=== PATIENT | male | born 2000 | race Asian ===

== ENCOUNTER 2024-04-12 10:23 | Emergency (ER) | payer OTHER, SELFPAY ==
--- NOTE | ~2024-04-12 | XR_ITS ---
XR ribs BI 3V w CXR 2V Ordering provider: Ebony Schultz APRN History: . fell down 25 stairs 2 days ago, pain upper ant Rt ribs . Comparison: None. FINDINGS: BONES: No acute rib fracture. MEDIASTINUM: The cardiac silhouette is not enlarged. LUNGS: No effusions or infiltrates. No pneumothorax. SOFT TISSUES: Normal. IMPRESSION: No acute osseous abnormality of the bilateral ribs. (Note: subtle/nondisplaced rib fractures can be o ccult on plain films and if there is continued clinical suspicion for rib fracture, recommend follow up CT chest.) Reviewed, dictated and finalized at location A. SIFICATION CONTROL CLERK IMPRESSION: No acute osseous abnormality of the bilateral ribs. (Note: subtle/nondisplaced rib fractures can be occult on plain films and if there is continued clinical s uspicion for rib fracture, recommend follow up CT chest.)
--- NOTE | ~2024-04-12 | XR_ITS ---
XR_CERV2-3V_CR Ordering provider: Ebony Schultz APRN History: . fall 25 stairs . Comparison: None. FINDINGS: VERTEBRAL BODIES: Normal height and alignment. No visible fracture or subluxation. The dens is intact . DISK SPACES: Well maintained. PARASPINOUS SOFT TISSUES: No prevertebral soft tissue swelling. IMPRESSION: No acute osseous abnormality cervical spine. Reviewed, dictated and finalized at location A. ANICAL TECHNICAL SERVICE SPECIALIST
[2024-04-12 10:43] VITALS: BP 125/80; PULSE 69; RESP 16; TEMP 36.8; O2SAT 100
--- NOTE | 2024-04-12 10:44 | ED.BACK ---
HPI - Back Pain/Injury General Chief Complaint: Back Pain/Injury Stated Complaint: R shoulder/neck & lower back pain from injury Time Seen by Provider: 04/12/24 10:44 Source: patient Mode of arrival: ambulatory Limitations: no limitations History of Present Illness HPI Narrative: 24 y/o male presented for c/o pain to multiple sites after falling down 25 stairs 2 days ago. Endorses pain to the right side of the neck, right chest with bruising, tailbone, and right lower anterior leg which he describes as numb. Has been applying cream for pain. Not taking anything by mouth for pain. Rates pain 8/10. Worse when sleeping. Denies headache, vision changes, sob, wheezing, dizziness. Denies LOC at time of the fall. Related Data Home Medications Medication Instructions Recorded Confirmed No Home Medications 04/12/24 04/12/24 Allergies Allergy/AdvReac Type Severity Reaction Status Date / Time No Known Allergies Allergy Verified 04/12/24 10:54 Review of Systems Review of Systems: CONSTITUTIONAL: Denies body aches, fever, chills EYES: Denies visual changes CARDIOVASCULAR: Denies chest pain, palpitations, or edema. RESPIRATORY: Denies cough or dyspnea. GASTROINTESTINAL: Denies abdominal pain, nausea, vomiting, or diarrhea. SKIN: Denies rash, itching, or wounds. MUSCULOSKELETAL: per HPI NEUROLOGIC: Denies headache, numbness, tingling, or weakness. All systems reviewed & are unremarkable except as noted in HPI and below PMFSH Comments At time of signature, I have reviewed and agree with nursing past medical, surgical, social and family history unless otherwise noted. Please see nursing chart for further information. There is no relevant family history pertinent to the presenting complaint Exam Narrative: GENERAL: Well-appearing HEAD: Normocephalic, atraumatic. EYES: conjunctivae clear NECK: full ROM but reports pain to right side of neck when turning head to right. Tender with palpation to C-6-7 and paraspinal area. CHEST: Speaks in full sentences. No respiratory distress. LCTAB. Right anterior chest with hematoma, firm with swelling; ecchymosis noted around areola. HEART: Regular rate and rhythm. Normal and equal peripheral pulses. MUSC: BLEs with normal strength and sensation, normal range of motion. Mild hematoma to right lower anterior leg, sensation intact. Nontender coccyx. No open wounds, or obvious deformity; alignment normal, pulse palpable and equal bilaterally, skin warm, dry, pink. Capillary refill less than 3 seconds. Gait steady. SKIN: Warm, dry NEURO: Alert and oriented x3. Course Course Emergency Course: Patient is aware of diagnosis, understands and agrees to treatment plan. Anticipatory guidance given. Patient agrees to follow-up as directed and is aware of reasons to seek care at the emergency department. Portions of this record may have been created with voice recognition software Level of Care: Express Care Visit Vital Signs Vital signs: Vital Signs Temperature 98.2 F 04/12/24 10:43 Pulse Rate 69 04/12/24 10:43 Respiratory Rate 16 04/12/24 10:43 Blood Pressure 125/80 04/12/24 10:43 Pulse Oximetry 100 04/12/24 10:43 Oxygen Delivery Room Air 04/12/24 10:43 Temperature 98.2 F 04/12/24 10:43 Pulse Rate 69 04/12/24 10:43 Respiratory Rate 16 04/12/24 10:43 Blood Pressure 125/80 04/12/24 10:43 Pulse Oximetry 100 04/12/24 10:43 Oxygen Delivery Room Air 04/12/24 10:43 Reviewed Transfer Transfered to: [facility] Transportation: Other (Private vehicle) Transfer rationale: Pt is agreeable to transfer. Requests transfer to [facility] via private vehicle. Risks of transportation reviewed with pt including injury, worsening of condition and . v/u. Friend will be driving pt; Report called to hospital, spoke with Dr Ashby, accepting physician. Pt is in stable condition at time of transfer. Advised to remain NPO and go directly to the hospital. MDM - Back Pain/Injury MDM Narrative Medical decision making narrative: Advised ER transfer as pt reports a fall down 25 stairs, resulting in pain to multiple sites. Pt requests Xrays at this time. Xrays reviewed with pt. Pt is agreeable to ER transfer. Differential Diagnosis Differential diagnosis: Likely lumbar radiculopathy, sciatica, strain of lumbar region, renal colic, pyelonephritis, discitis and other (MVC, cervical strain, cervical radiculopathy, cervical spine fracture/dislocation/herniation Musculoskeletal injury, torticollis, cervical spondylosis, cervical stenosis, epidural abscess, osteomyelitis, disc herniation) Imaging Data Radiologist's impression: Patient: Brody Harris : 2000 MR#: [id number] Age: 24 Acct:[id number] Loc: [facility] ADM Date: 04/12/24Attending Dr: Ordering Physician: Ebony Schultz APRN Date of Service: 04/12/24 Procedure(s): XR cervical spine 2-3V Accession Number(s): [id number] cc: Ebony Schultz APRN; HEAD WAITER/WAITRESS PHYSICIAN~ XR_CERV2-3V_CR Ordering provider: Ebony Schultz APRN History: . fall 25 stairs . Comparison: None. FINDINGS: VERTEBRAL BODIES: Normal height and alignment. No visible fracture or subluxation. The dens is intact. DISK SPACES: Well maintained. PARASPINOUS SOFT TISSUES: No prevertebral soft tissue swelling. IMPRESSION: No acute osseous abnormality cervical spine. Patient: Brody Harris : 2000 MR#: [id number] Age: 24 Acct:[id number] Loc: [facility] ADM Date: 04/12/24Attending Dr: Ordering Physician: Ebony Schultz APRN Date of Service: 04/12/24 Procedure(s): XR ribs BI w PA/LAT CXR Accession Number(s): [id number] cc: Ebony Schultz APRN; HEAD WAITER/WAITRESS PHYSICIAN~ XR ribs BI 3V w CXR 2V Ordering provider: Ebony Schultz APRN History: . fell down 25 stairs 2 days ago, pain upper ant Rt ribs . Comparison: None. FINDINGS: BONES: No acute rib fracture. MEDIASTINUM: The cardiac silhouette is not enlarged. LUNGS: No effusions or infiltrates. No pneumothorax. SOFT TISSUES: Normal. IMPRESSION: No acute osseous abnormality of the bilateral ribs. (Note: subtle/nondisplaced rib fractures can be occult on plain films and if there is continued clinical suspicion for rib fracture, recommend follow up CT chest.) Reviewed, dictated and finalized at location A. LAGE FRAMER Dictated By: Jatinder Gutiérrez MD 04/12/24 1126 Signed By: <Electronically signed by Jatinder Gutiérerz MD in [place]> 04/12/24 1131 Discharge Plan Discharge Clinical Impression: Acute neck pain, Rib pain on right side Fall down stairs Qualifiers: Encounter type: initial encounter Qualified Code(s): W10.8XXA - Fall (on) (from) other stairs and steps, initial encounter Patient Disposition: Acute Care Hospital Condition: Stable Prescriptions: No Action No Home Medications Follow-up/Referrals: PHYSICIAN,HEAD WAITER/WAITRESS [Primary Care Provider] - Time of Disposition: 11:48
== END 2024-04-12 11:45 | disposition short-term general hospital (02) ==
PROVIDERS: Emergency Provider Nurse Practitioner Family
DX: M54.2 Cervicalgia (principal); R07.89 Other chest pain; W10.9XXA Fall (on) (from) unspecified stairs and steps, initial encounter
CPT/HCPCS: 71046; 71110; 72040; 99214; G0463

== ENCOUNTER 2024-04-12 12:09 | Emergency (ER) | payer OTHER, SELFPAY ==
--- NOTE | ~2024-04-12 | CT_ITS ---
CT cervical spine wo con Ordering provider: Saeid Newton PA-C History: . fall, neck pain increasing . Comparison: None Technique: CT of the cervical spine was performed without contrast. Sagittal and coronal reformatted images were also obtained and reviewed. Automated exposure control and iterative reconstruction shawn hnique were employed. The dose-length product was 471.60 mGy-cm. FINDINGS: VERTEBRAE: No subluxation or acute fracture. The occipital condyles are intact. DISC SPACES: Normal. Evaluation of the neural foramina and central canal are limited without intrath ecal contrast. PARASPINOUS SOFT TISSUES: Normal. IMPRESSION: No acute osseous abnormality cervical spine. Reviewed, dictated and finalized at location A. RACT IMPLEMENTATION ANALYST
--- NOTE | ~2024-04-12 | CT_ITS ---
EXAMINATION:CT diagnostic chest wo con DATE: 04/12/2024 13:24 INDICATION: Anterior right chest pain. Fall. TECHNIQUE: Computed tomography (CT) of the chest was performed without intravenous contrast. Automate d exposure control and iterative reconstruction technique were employed. The dose-length product (DLP ) was 539.80 mGy-cm. COMPARISON: Radiographs 04/12/2024 FINDINGS: There is no pneumonia or pleural effusion. The heart size is normal. No pericardial effusio n. There is diffuse hepatic steatosis. There is subcutaneous fat stranding in right anterior chest wa ll. The bones are unremarkable. IMPRESSION: 1. Subcutaneous fat stranding in right anterior chest wall, consistent with contusion. 2. Diffuse hepatic steatosis. Reviewed, dictated and finalized at location A. ER LIFT OPERATOR IMPRESSION: 1. Subcutaneous fat stranding in right anterior chest wall, consistent with con tusion. 2. Diffuse hepatic steatosis.
--- NOTE | ~2024-04-12 | XR_ITS ---
EXAMINATION: XR tibia fibula RT 2V DATE: 04/12/2024 13:30 INDICATION: Right mosher pain. Fall downstairs. TECHNIQUE: 2 views of right tibia and fibula were obtained. COMPARISON: None. FINDINGS: Alignment is normal. No fracture. Joint spaces are normal. IMPRESSION: 1. No fracture. Reviewed, dictated and finalized at location A. [facility] IMPRESSION: 1. No fracture.
--- NOTE | ~2024-04-12 | CT_ITS ---
EXAMINATION: CT lumbar spine wo con DATE: 04/12/2024 13:24 INDICATION: Low back pain. Fall. TECHNIQUE: Computed tomography (CT) of the lumbar spine was performed without intravenous contrast. A utomated exposure control and iterative reconstruction technique were employed. The dose-length produ ct was 1311.90 mGy-cm. COMPARISON: None FINDINGS: Bone alignment is normal. Vertebral body heights are normal. Intervertebral disc heights ar e normal. The following disc levels are specifically discussed: L1-L2: The disc does not extend beyond the endplate margin. There is mild bilateral facet joint osteo arthritis. There is no neural foraminal stenosis. There is no central canal stenosis. L2-L3: The disc does not extend beyond the endplate margin. There is mild bilateral facet joint osteo arthritis. There is no neural foraminal stenosis. There is no central canal stenosis. L3-L4: The disc does not extend beyond the endplate margin. There is moderate right and mild left fac et joint osteoarthritis. There is no neural foraminal stenosis. There is no central canal stenosis. L4-L5: The disc is bulging. There is mild bilateral facet joint osteoarthritis. There is mild bilater al neural foraminal stenosis. There is mild central canal stenosis. L5-S1: There is a central protrusion. There is mild bilateral facet joint osteoarthritis. There is no neural foraminal stenosis. There is mild central canal stenosis. IMPRESSION: 1. Mild lumbar spondylosis. Reviewed, dictated and finalized at location A. RVISOR SPRING UP IMPRESSION: 1. Mild lumbar spondylosis.
[2024-04-12 12:13] VITALS: BP 130/75; PULSE 64; RESP 18; TEMP 36.6; O2SAT 100
--- NOTE | 2024-04-12 13:08 | ED.FALL ---
HPI - Fall General Chief Complaint: Fall Stated Complaint: fall 04/10/24 Time Seen by Provider: 04/12/24 13:32 Focused HPI: This is a 24-year-old male who presents to the ED for chief complaint of fall that occurred 2 days ago. He was walking downstairs, slipped and fell onto the right side. Reports he has had increasing neck pain, lower back pain. Has noticed increasing right knee pain as well. He was at urgent care earlier today and wanted him here for evaluation with advanced imaging. Reports right anterior chest wall pain following the fall as well. GENERAL: Well-appearing, well-nourished, and in no acute distress. HEAD: Normocephalic, atraumatic. CHEST: Clear to auscultation. No respiratory distress. Mild chest wall tenderness to the anterior right chest. HEART: Regular rate and rhythm. NEURO: Alert and oriented x3. Patient screened in triage and initial orders placed. Additional care and disposition to be based upon diagnostic testing and treatment. Source: patient Related Data Allergies Allergy/AdvReac Type Severity Reaction Status Date / Time No Known Allergies Allergy Verified 04/12/24 10:54 Review of Systems Review of Systems: All systems as dictated in HPI Exam Narrative: GENERAL: Well-appearing, well-nourished, and in no acute distress. HEAD: Normocephalic, atraumatic. EYES: PERRLA and EOMI. ENT: Nares clear, no rhinorrhea or epistaxis. Mucous membranes moist. Oropharynx without tonsillar hypertrophy exudate or other lesions. NECK: Supple. No adenopathy or masses. CHEST: No respiratory distress. Clear to auscultation. No wheezes rales or rhonchi HEART: Regular rate and rhythm. No murmur heard. Normal peripheral pulses. ABDOMEN: Soft, nontender, nondistended, normal active bowel sounds. MSK: Mild paraspinal cervical tenderness. Mild midline sacral tenderness. No bony deformities or step-offs. Full range of motion of the spine. Ambulatory without difficulty. Mild tenderness to the right proximal mosher. SKIN: Warm, dry, no rash. NEURO: Alert and oriented x4. No focal deficits. PSYCH: Normal mood and affect. Course Vital Signs Vital signs: Vital Signs Temperature 97.9 F 04/12/24 12:13 Pulse Rate 64 04/12/24 12:13 Respiratory Rate 18 04/12/24 12:13 Blood Pressure 130/75 04/12/24 12:13 Pulse Oximetry 100 04/12/24 12:13 Oxygen Delivery Room Air 04/12/24 12:13 Temperature 97.9 F 04/12/24 12:13 Pulse Rate 88 04/12/24 14:01 Respiratory Rate 17 04/12/24 14:01 Blood Pressure 132/85 04/12/24 14:01 Pulse Oximetry 99 04/12/24 14:01 Oxygen Delivery Room Air 04/12/24 12:13 MDM - Fall MDM Narrative Medical decision making narrative: This is a 24-year-old male who presents to the ED for chief complaint of a fall that occurred 2 days ago and subsequent injuries to the neck, low back, chest, right knee. Vitals are normal. Exam remarkable for the above. No neural deficits. CT imaging of the cervical spine and lumbar spine do not show any acute findings. CT thorax this show evidence of contusion but no fracture.. Right knee x-ray is without acute osseous findings. Presentation consistent with musculoskeletal strains and right chest contusion Patient will be discharged in stable condition. Supportive measures discussed and return precautions given. Patient is understanding and agreeable with plan for discharge with PCP follow-up. Discharge Plan Discharge Clinical Impression: Fall down stairs, Chest wall contusion Patient Disposition: Home, Self-Care Condition: Stable Instructions: Antibiotic Form Additional Instructions: Exam imaging today are reassuring. No fractures. Please take Tylenol and ibuprofen regularly for pain control pain. If you have any new or worsening symptoms please return to the ER for further evaluation. Prescriptions: New cyclobenzaprine 10 mg tablet 10 mg PO HS PRN (Reason: muscle spasm) Qty: 10 0RF Follow-up/Referrals: PHYSICIAN,POT ROOM TAPPER [Non-Staff] - Time of Disposition: 13:44
--- NOTE | 2024-04-12 13:25 | PC.NURSE ---
when called to room, pt was in XRAY/CT, they will bring pt to room 16 following imaging
[2024-04-12] MEDS: ACETAMINOPHEN 500 MG TABLET 1000 MG PO (13:36)
[2024-04-12] MEDS: IBUPROFEN 400 MG TABLET 800 MG PO (13:36)
[2024-04-12 14:01] VITALS: BP 132/85; PULSE 88; RESP 17; O2SAT 99
== END 2024-04-12 14:03 | disposition home or self-care (01) ==
LOC: ANHED 13:48
PROVIDERS: Emergency Provider Physician Assistant
DX: S20.211A Contusion of right front wall of thorax, initial encounter (principal); W10.9XXA Fall (on) (from) unspecified stairs and steps, initial encounter; M47.816 Spondylosis without myelopathy or radiculopathy, lumbar region; K76.0 Fatty (change of) liver, not elsewhere classified
CPT/HCPCS: 71046; 71110; 71250; 72040; 72125; 72131; 73590; 99284; A9270